=== PATIENT | male | born 1960 | race Caucasian/White ===

== ENCOUNTER → 2017-09-20 | Day surgery (SDC) | payer BC ==
[~2017-09-20] VITALS: Ht 182.1 cm; Wt 90.3 kg
[~2017-09-20] MED LIST: BUPIVACAINE HCL PF 0.25% 30 ML VIAL ONE; BUPIVACAINE/EPINEPHRINE 0.5% PF 10 ML VIAL ONE; CHLORHEXIDINE GLUCONATE 2 % 1 PACK (2 CLOTHS) TOPICAL PRN; DEXAMETHASONE SOD PHOS 4 MG/ML VIAL IV ONE; DO NOT ADM ANY ANTICOAGULANT DRUGS PRN; GLYCOPYRROLATE 1 MG/5 ML SYRINGE IV PUSH ONE; KETOROLAC TROMETHAMINE 30 MG/ML (IVP) VIAL IV PUSH ONE; LACTATED RINGER'S 1000 ML IV PRN; LIDOCAINE 0.5%/EPINEPHrine 1:200,000 SOLN 50 ML VIAL ONE; LIDOCAINE HCL 1% PF 5 ML SYRINGE OTHER ONE; METOPROLOL TARTRATE 25 MG TAB PO PRN; MIDAZOLAM HCL 2 MG/2 ML VIAL ONE; NEOSTIGMINE 5 MG/5 ML SYRINGE IV PUSH ONE; ONDANSETRON HCL 4 MG/2 ML VIAL IV PUSH ONE; POVIDONE IODINE 5% (ANTISEPSIS KIT) 4 APPLICATIONS EACH NARE PRN; PROPOFOL 200 MG/20 ML AMP IV ONE; ROCURONIUM INJ 50 MG/5 ML SYRINGE IV PUSH ONE; SODIUM CHLORID 0.9% 500 ML IV PRN; ceFAZolin INJ 1,000 MG VIAL IV ONE; metroNIDAZOLE 500 MG INJ 100 ML IV ONE; oxyCODONE/ACETAMINOPHEN 10 MG/325 MG TAB ONE; oxyCODONE/ACETAMINOPHEN 10 MG/325 MG TAB PO PRN
[2017-09-20 13:19] LABS: AUTOMATED NEUTROPHIL # 3.2 TH/MM3 (1.8-7.7); BASOPHIL % 0.5 % (0.0-2.0); EOSINOPHIL % 0.4 % (0.0-4.0); HEMATOCRIT 40.5 % (39.0-51.0); HEMOGLOBIN 13.6 GM/DL (13.0-17.0); LYMPH % 28.6 % (9.0-44.0); LYMPHOCYTE # 1.5 TH/MM3 (1.0-4.8); MEAN CORPUSCULAR HEMOGLOBIN 31.1 PG (27.0-34.0); MEAN CORPUSCULAR HGB CONC 33.5 % (32.0-36.0); MEAN PLATELET VOLUME 7.9 FL (7.0-11.0); MONO % 11.6 % (0.0-8.0); MONOCYTE # 0.6 TH/MM3 (0-0.9); NEUT % 58.9 % (16.0-70.0); PLATELET COUNT 299 TH/MM3 (150-450); RED BLOOD COUNT 4.36 MIL/MM3 (4.50-5.90); RED CELL DISTRIBUTION WIDTH 13.5 % (11.6-17.2); WHITE BLOOD COUNT 5.4 TH/MM3 (4.0-11.0)
--- NOTE | 2017-09-20 16:29 | MP ---
cc: Gustavo Huerta MD DATE OF OPERATION: 09/20/2017 PREOPERATIVE DIAGNOSES: 1. Right ischiorectal abscess. 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 POSTOPERATIVE DIAGNOSES: 1. Right ischiorectal abscess. 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 PROCEDURE PERFORMED: 1. Incision and drainage of right-sided ischiorectal abscess. 2. Incision and drainage of deep postanal space and posterior fistulotomy. ANESTHESIA: General endotracheal. SURGEON: Dr. Huerta ESTIMATED BLOOD LOSS: Minimal. OPERATIVE FINDINGS: This patient was seen over a month ago in my office. He came from [facility] with chronic anal pain. At that time, he had been on antibiotics for bronchitis and he developed some constipation and developed anal pain. By the time he saw me in the office about a month or 6 weeks ago, his pain was improving markedly and on examination, the only thing I could palpate was what was felt to be a posterior fissure in ano, which seemed fairly superficial. He said that he had pain on defecation at that time. He did not have any abscess that I could palpate at that time. Since that time, he has gotten his stools nice and soft and his posterior anal pain has gone away on bowel motions but he continues to have right buttocks pain and now he feels as if he is starting to get swelling over there. On examination in the office yesterday, he clearly had a ballottable fluid-filled area in the right ischiorectal space and then on anoscopy and digital rectal exam, he seemed to have an internal opening of a fistula in ano with some purulent drainage posteriorly. This was consistent with a deep postanal space abscess and fistula with a right-sided horseshoe extension. For this reason, incision, drainage, and fistulotomy was recommended. At surgery, a right anterior incision was made and an elliptical incision was made so that the area did not close. The incision was approximately 4 cm long. I was able to go up into the ischiorectal fossa and loculations were broken. A Posterior fistulotomy was done including the deep postanal space draining pus from this area also. OPERATIVE TECHNIQUE: The patient was placed on the table in the left lateral position after general endotracheal anesthesia. The buttocks were taped apart and the area was prepped and draped in the usual manner. The ballotable fluid-filled ischiorectal fossa was palpated and a Kessler bivalve retractor was inserted into the anal canal. Posteriorly, there was an internal opening of a fistula in ano consistent with a deep postanal space abscess with fistula in ano with a right horseshoe extension. My attention was first turned to the right, horseshoe extension and in the right anterior position a 4 cm incision was made and then an elliptical incision was made with drainage of purulent material. The area was then palpated with digital palpation and the ischiorectal fossa was palpated lateral and posteriorly and the loculations were broken up, and the area was drained well. Next, my attention was turned to the anal canal with the Kessler bivalve retractor in the anal canal and a crypt hook was used at the level of the dentate line posteriorly and an internal opening could be found. This internal opening was then used as a guide to posterior fistulotomy with electrocautery and the deep postanal space was entered and the fistulotomy was done and purulent material was drained from here as well. These areas clearly connected with a right horseshoe abscess with this posterior fistula in ano. Next, the wounds were all irrigated thoroughly with saline solution and a bulb syringe and once this was done, dressings were placed in Monsel's solution and placed in the wound loosely as loose packing, to be removed tomorrow. The pus from the ischiorectal abscess was sent for gram stain and culture and sensitivity. The anal canal was injected with 40 ml 0.5% Lidocaine with epinephrine and 20 ml of 0.5% Marcaine with epinephrine. Sponge, needle and instrument counts were reported as correct. Estimated blood loss was minimal. The patient tolerated the procedure well and left the operating room in good condition. MD BRYNN Duval/SUZIE , 03:55 PM , 04:28 PM BASIM
[2017-09-20 17:00] VITALS: BP 152/68; PULSE 60; RESP 18; TEMP 98; O2SAT 98
--- NOTE | 2017-09-21 14:56 | EKG ---
Date Performed: 09/20/2017 Time Performed: 12:34:56 PTAGE: 56 years EKG: Sinus rhythm NORMAL ECG NO PREVIOUS TRACING DOCTOR: Manuel Sin Interpretating Date/Time 09/21/2017 14:54:58
== END | disposition home or self-care (01) ==
LOC: HSDC 11:55
PROVIDERS: ATTEND Colon & Rectal Surgery
DX: K61.3 Ischiorectal abscess (principal); B96.89 Other specified bacterial agents as the cause of diseases classified elsewhere; Z01.810 Encounter for preprocedural cardiovascular examination
CPT/HCPCS: 00902; 10061; 46040; 85025; 87015; 87070; 87102; 87116; 87185; 87205; 87206; 93005; J0690; J1100; J1885; J2250; J2405; J2710; J3010